=== PATIENT | male | born 1985 | race African-American/Black ===

== ENCOUNTER 2025-05-16 13:26 | Inpatient (IN) | payer OTHER, SELFPAY ==
[2025-05-13 21:31] VITALS: BP 129/84
[2025-05-13 21:35] VITALS: BMI 42.3
[2025-05-13] MEDS: TYLENOL 1000 MG PO (21:45)
--- NOTE | 2025-05-13 22:33 | ED.MUSCINJ ---
HPI-Injury
<Saud Najera MD, Resident - Last Filed: 05/13/25 23:53>
General
Chief Complaint: Musculo-Skeletal Complaint
Source: patient
Time Seen by Provider: 05/13/25 22:07
History of Present Illness-Injury
Is this injury a work related problem?: No
Initial Injury comments:
Patient is a 39-year-old male with no PMH who presents to [facility] with left knee and ankle pain. Patient was walking down steps at home when his right leg slipped off the step, causing his left leg to twist. His left leg was behind him and
on a higher step at the time. Patient felt immediate pop in his knee and fell to the ground. No LOC or head trauma. No blood thinners. Patient felt pain with movement and had substantial difficulty standing and walking on his left leg. Standing
and walking was only possible with his left leg fully locked. Patient was unable to extend his left knee. At the bedside, patient describes a depression above his left knee. Patient also describes mild pain with movement of his left ankle.
Review of Systems
<Saud Najera MD, Resident - Last Filed: 05/13/25 23:53>
Review of Systems
Musculoskeletal: Reports joint pain and joint swelling
Neurological: Denies weakness or numbness
Phy Exam
<Saud Najera MD, Resident - Last Filed: 05/13/25 23:53>
Physical Exam
Physical Exam:
General: NAD. Conversant.
MSK: Depression superior to patella. Edema around left knee extending into thigh and lower leg. No warmth, erythema, or ecchymoses. Edema most pronounced in suprapatellar region. Patient unable to lift his left lower leg off the bed while lying
flat due to both pain and mechanical dysfunction. Mild TTP of left lateral malleolus. Ankle has full ROM, though mildly painful. Sensation intact in LLE.
CV: Left lower extremity warm, no cyanosis, no pallor, and dorsalis pedis pulse 2+.
Neuro: A&O x 3.
Injury Course
<Saud Najera MD, Resident - Last Filed: 05/13/25 23:53>
Orders/Labs/Results
Orders:
Orders
05/13/25 21:40
Knee, Left 4 or More Views [CR Knee - Left 4 Or More View*] Urgent
Comment:
Reason For Exam: fall, left knee pain and swelling
05/13/25 21:44
Acetaminophen [Tylenol] 1,000 mg .ROUTE .STK-MED ONE
05/13/25 21:45
Acetaminophen [Tylenol] 1,000 mg PO NOW STA
05/13/25 23:40
CR Ankle - Left Min 3 Views Urgent
Comment:
Reason For Exam: left ankle pain
05/14/25 00:05
Ortho Boot Left- Treatment ONCE
Short or tall?: Short
<Vahid Meyer MD - Last Filed: 05/14/25 00:46>
Orders/Labs/Results
Orders:
Orders
05/13/25 21:40
Knee, Left 4 or More Views [CR Knee - Left 4 Or More View*] Urgent
Comment:
Reason For Exam: fall, left knee pain and swelling
05/13/25 21:44
Acetaminophen [Tylenol] 1,000 mg .ROUTE .STK-MED ONE
05/13/25 21:45
Acetaminophen [Tylenol] 1,000 mg PO NOW STA
05/13/25 23:40
CR Ankle - Left Min 3 Views Urgent
Comment:
Reason For Exam: left ankle pain
05/14/25 00:05
Ortho Boot Left- Treatment ONCE
Short or tall?: Short
<Saud Najera MD, Resident - Last Filed: 05/13/25 23:53>
MDM/Problems Addressed
Differential Diagnosis Includes:
Quadriceps tendon rupture
Quadriceps tendon tear
Quadricep muscle strain
Ankle fracture
Ankle sprain
MDM/Problems Addressed:
Assessment: Patient is a 39-year-old male with no significant PMH who presents to the [facility] ED with left knee and ankle pain following injury with twisting motion and subsequent 'pop' while walking down steps. Physical exam remarkable for
inability to extend left lower leg at the knee with associated suprapatellar depression and surrounding swelling, as well as TTP of left lateral malleolus. Suspect left quadriceps tendon rupture/tear and left ankle fracture/sprain. Workup ongoing.
Plan:
#Left leg pain
Imaging: L knee x-ray, L ankle x-ray
Acetaminophen for pain control
L knee immobilizer
Plan for outpatient orthopedics follow-up
<Saud Najera MD, Resident - Last Filed: 05/13/25 23:53>
*Pulse Oximetry
SaO2: 98
Patient hypoxic: no
*Critical Care Note
Total Time (30-74mins, 75-104mins- exclusive of procedures): Not Applicable
ED Attending Note
<Saud Najera MD, Resident - Last Filed: 05/13/25 23:53>
-
Portions of this chart may have been created with voice recognition software.� Occasional wrong word or��sound alike� substitutions may have occurred due to the inherent limitations of voice recognition software.
<Vahid Meyer MD - Last Filed: 05/14/25 00:46>
ED Attending Note
Patient seen and examined by attending physician: Yes
I performed a history and physical exam of patient and discussed management with resident, I reviewed resident's note and agree with documented findings and plan of care.: Yes
ED Attending Note:
I have seen and evaluated the patient with a [id number] encounter. I have spoken to the resident and involved in the medical history, the physical exam, medical decision making.
Evaluation and management service: agree unless noted differently below.
Results interpretation: agree unless noted differently below.
Focused HPI: 39-year-old male presents to the ER for evaluation after a slip and fall with left knee injury. Patient was walking up the stairs and slipped and his left leg was flexed at the knee underneath him. He felt a pop in the left knee and
had immediate pain and has not been able to move the knee since due to pain. Also has some mild pain in the left ankle. He denies any other injuries or complaints.
Physical exam: Awake and alert, holding leg straight in bed appears uncomfortable. He has no patellar tenderness or joint line tenderness but does have tenderness in the suprapatellar region with palpable defect in the area of the quadriceps
tendon; he has a mild suprapatellar joint effusion. He has some mild tenderness over the lateral malleolus on the left ankle but no tenderness to the medial malleolus or midfoot; good pulse distally in the left lower extremity. No other signs of
acute trauma.
Medical Decision Makin-year-old male presents with a knee injury after slip and fall on the stairs. X-ray shows no acute fracture, overall his clinical exam is concerning for quadriceps tendon rupture. He also has mild ankle pain suspect
sprain but will check x-ray for completeness. Will place patient in a knee immobilizer. Discussed with orthopedics for follow-up.
X-ray of the ankle shows fibular fracture as well. Placed in Ortho boot in addition to immobilizer. Follow-up with orthopedist outpatient.
I had a long discussion with the patient: He is very concerned because he lives in a townhouse with steps leading to the front door as well as steps throughout the house and does not think he will be able to get around even with crutches. He says
he lives by himself and does not have any family in the area. His mother is flying in tomorrow and will be able to help him but in the meantime he does not feel comfortable going home tonight with his current injuries. I explained to him that
surgery--if needed--would not occur in the hospital and that admission would be mainly for observation but he still wishes to stay in hospital. Discussed case with hospitalist.
Discharge Plan
Departure
Discharge Problem:
Injury of knee, left, Closed fibular fracture
Instructions: Lower leg fracture, Quadriceps and Patellar Tendon Injuries
Prescriptions:
No Action
No Current Medications
0
Referrals:
Khoi Boogie MD [Active, Orthopedics] - Call in 1-3 days for appt
Referral Note: Orthopedist
Activity Restrictions/Additional Instructions:
You were seen in the emergency room for a knee injury. We are concerned that you have injured your quadriceps tendon. You also had a broken bone in your ankle. You were placed in a knee immobilizer and ankle boot which you should keep in place at
all times. You should ambulate with crutches to help you get around but avoid putting weight on your left leg. You should ice your knee for 15 minutes at a time 3-5 times a day for the next few days and keep it elevated when you are sitting. You
can take Tylenol and ibuprofen to help with the pain. You should see the orthopedist this week for further assessment and treatment as we discussed. You should receive a call from the office on Thursday to help schedule your appointment�if you do
not receive a call by Thursday afternoon please call the number above to confirm your appointment.
Thank you for visiting the Emergency Department at [facility].
1. Please schedule a follow up appointment as directed. Call first thing tomorrow morning to make an appointment.
2. If indicated, please take your medications as instructed and indicated on discharge paperwork.
3. If any of your symptoms do not improve, or persist, or become more severe within 6-12 hours, please return to the emergency department for further care.
4. Please return to the emergency department if you develop a headache, neck pain/stiffness, fever greater than 100.4F, chest pain, shortness of breath, persistent nausea, vomiting, slurred speech, difficulty walking, numbness/tingling, weakness,
signs of infection or any other symptoms that are worrisome to you.
Please call [phone] if you have any questions.
Interventions
Interventions:
*Risk Screen - Suicide Last Done: 05/13/25 21:36
*General Assessment Last Done: 05/13/25 21:36
*Neglect/Abuse Screening Last Done: 05/13/25 21:36
*ED- Fall Risk Assessment Last Done: 05/13/25 21:36
*ED COVID-19 Vaccine History Last Done: 05/13/25 21:36
*ED Influenza Vaccine History Last Done: 05/13/25 21:36
ED-Musculoskeletal Assessment Last Done: 05/13/25 21:38
Discharge Date and Time
Print Language: SLOVAK
[2025-05-14] MEDS: MOTRIN 400 MG PO (01:07)
--- NOTE | 2025-05-14 01:50 | HPS.HSE ---
Family Physician
-
Family Physician: * NONE
Chief Complaint
-
Fall
History of Present Illness
This is a 39-year-old with no known signal past medical history who presents to the emergency department following mechanical fall.
Patient reports that he was walking downstairs slipped and fell on his left leg, he had a left knee pain and left ankle pain. He had no head strike. He is not on any thinners. There was no loss of consciousness.
In the emergency department he was afebrile, blood pressure was 129/80 with a pulse of 104 and he was satting 98% on room air. Next
X-ray shows a left distal fibular fracture. Also found to have a quad tendon rupture.
Medical History
Past Medical History
Past Medical History: Reports None
Past Surgical History: Reports Other (Achilles tendon repair)
Social History
Tobacco: Non-smoker
Alcohol: Occasional
Drug: None
Family History
Family History: Not pertinent
Allergies / Home Medications
Allergies reflects when Allergies were last updated in [facility].
Home Medications with original date entered in [facility]
Allergy/Medication List:
Allergies
Allergy/AdvReac Type Severity Reaction Status Date / Time
No Known Allergies Allergy Verified 05/13/25 21:30
Home Medications
No Meds [No Current Medications] 05/13/25
Review of Systems
-
Constitutional: Reports No Symptoms
EENT: Reports No Symptoms
Respiratory: Reports No Symptoms
Cardiac: Reports No Symptoms
Abdomen/GI: Reports No Symptoms
: Reports No Symptoms
Musculoskeletal: Reports No Symptoms
Skin: Reports No Symptoms
Neurological: Reports No Symptoms
Endocrine: Reports No Symptoms
Hematologic/Lymphatic: Reports No Symptoms
Psych: Reports No Symptoms
Physical Exam
Vital Signs
Vital Signs
Temp Pulse Resp BP Pulse Ox
98.2 F 104 20 129/84 98
05/13/25 21:31 05/13/25 21:31 05/13/25 21:31 05/13/25 21:31 05/13/25 22:34
Physical Exam
General: Well Developed, Well Nourished and No Apparent Distress
HEENT: NormoCephalic, Moist mucous membranes and Atraumatic
Respiratory: Clear
Cardiac: S1/S2 and Regular Rhythm; No Murmur or Rub
GI: Soft, Non Tender, Non Distended and Normal Bowel Sounds; No Organomegaly
Rectal: Deferred by Provider
Musculoskeletal: No Clubbing, No Cyanosis and No Edema
Skin: No Rash
Neuro: Nonfocal/grossly intact
Data Reviewed
-
Diagnostic Radiology: Image Personally Visualized and interpreted and Report Reviewed by me
Impression/Plan
-
IMPRESSION:
39-year-old with no known signal past medical history presents to the emergency department following a mechanical fall. He suffered a ankle fracture as well as quadricep tendon rupture. Patient he is unable to walk and lives by himself in a
townhouse. He is unable to help available until tomorrow when his mother arrives. He is unable to manage without getting assistance therefore cannot go home until then.
PLAN:
Ambulatory dysfunction
- Admit to MedSurg observation
-Pain control
-Weightbearing status as per splint
-PT consultation
Ultimately patient is planning to have the tendon repair surgery in [place]
DVT prophylaxis�SCDs
CODE STATUS full code
[2025-05-14] MEDS: MELATONIN 5 MG PO (02:43)
[2025-05-14 04:06] VITALS: BMI 45.5
[2025-05-14 04:07] VITALS: BP 141/96
[2025-05-14] MEDS: TYLENOL 650 MG PO ×4 (04:21→16:39)
--- NOTE | 2025-05-14 04:29 | PTCARENOTE ---
patient received from ED via stretcher. stretcher moved as close to bed as possible and patient able to transfer self over to bed. bed alarm in place due to recent fall. assessment completed. AOx3. oriented patient to room. call muñiz placed within
reach. POC ongoing.
[2025-05-14 08:35] VITALS: BP 148/90
--- NOTE | 2025-05-14 10:42 | CM ---
Addendum entered by Mayda Adam 05/14/25 14:15:
ortho consulted
he will remain inpatient with weightbearing as tolerated on his left lower extremity. He will need to be n.p.o. after midnight on Thursday night
OR Thursday
PLAN: home when stable, CM to follow for discharge planning needs
Original Note:
Patient seen at bedside
IA completed
lives alone in multistory home, 10+steps to enter, flight to bed/bath, states mom flying in today from [place] and he will be going home with her
PLOF: Independent, works
Denies DME
Denies vn, has had outpatient PT in past
PCP: NONE - information given on residency clinic
pharmacy: [facility]
PLAN: Home no needs
mom going to transport
--- NOTE | 2025-05-14 11:12 | W.PN.HOSP.TC ---
Today's Communication/Plan
-
OR likely Thursday
Pain controlled
Labs in morning
Assessment / Plan
Assessment / Plan
General: Well Developed, Well Nourished and No Apparent Distress
HEENT: NormoCephalic, Moist mucous membranes and Atraumatic
Respiratory: Clear
Cardiac: S1/S2 and Regular Rhythm; No Murmur or Rub
GI: Soft, Non Tender, Non Distended and Normal Bowel Sounds; No Organomegaly
Rectal: Deferred by Provider
Musculoskeletal: LLE in immobilizer. Left foot sensation/motor intact.
Skin: No Rash
Neuro: Nonfocal/grossly intact
39-year-old with no known signal past medical history presents to the emergency department following a mechanical fall. He suffered a ankle fracture as well as quadricep tendon rupture. Patient he is unable to walk and lives by himself in a
townhouse. He is unable to help available until tomorrow when his mother arrives. He is unable to manage without getting assistance therefore cannot go home until then.
PLAN:
Mechanical fall
Left ankle fracture
Suspected Quad tendon rupture
-Pain control
-Orthopedic eval-plan for tentative surgery likely Thursday. d/w with Dr. Boogie. Full consult will follow by them.
-Hold PT/OT eval for now
-Bowel regimen
Check labs in the morning.
DVT prophylaxis�SCDs
CODE STATUS full code
Anticipated Discharge: > 48 hours
Subjective/Interval History
-
Date of Service: May 14, 2025
states of mild pain left leg
Objective Data
-
Vital Signs:
Vital Signs
Temp Pulse Resp BP Pulse Ox
98.2 F 98 20 148/90 95
05/14/25 08:35 05/14/25 08:35 05/14/25 08:35 05/14/25 08:35 05/14/25 08:35
I&O
05/13/25 05/14/25 05/15/25
06:59 06:59 06:59
Intake Total 480 / 480
Output Total 800 / 800
Balance -320 / -320
--- NOTE | 2025-05-14 12:27 | CON.ORTHO ---
Consultation
-
Date/Time Consultation Requested: 05/14/2025
Date/Time Consultation Performed: 05/14/2025
Requesting Provider: Dr. Hu
Performing Provider: Amanda Lea PA-C, for Dr. Khoi Boogie
Reason for Consultation: Left quad tendon rupture; left distal fibula fracture
Consultation - Orthopedics
History
HPI: Sebastian is a 39-year-old male who presented to [facility] emergency department after suffering a fall down his stairs. He states he went to step down with his right foot, but it slipped. He believes his left leg got twisted on the
wall near the landing, causing him to fall onto the left knee. He felt a pop in the knee and had immediate discomfort and difficulty ambulating. X-rays were taken in the mid of both his left knee and left ankle. He was noted to have a
nondisplaced Oneil B fracture of his left distal fibula. The x-rays did not show any acute fracture, but a moderate suprapatellar effusion. He was unable to perform an independent straight leg raise and was noted to have a palpable defect about
his quad tendon, concerning for rupture. He was placed in a short cam walker boot as well as a knee immobilizer. Our orthopedic specialty was consulted and to discuss definitive management of both his quad tendon rupture and distal fibula fracture
going forward. He denies any significant medical conditions. He does have a previous history of a right Achilles tendon repair, but denies any perioperative complications or issues with anesthesia. He reports his pain is well-controlled at rest.
Past medical history: None.
Past surgical history: Right Achilles tendon repair.
Social history: Denies tobacco use. Social alcohol use. [place] [facility]. No family in the area. 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
Family history: Noncontributory.
Review of systems: All systems reviewed and negative except for those mentioned in HPI.
Allergies / Home Medications
Allergy/AdvReac Type Severity Reaction Status Date / Time
No Known Allergies Allergy Verified 05/13/25 21:30
�Medication �Instructions �Recorded
No Meds [No Current Medications] 05/13/25
Vital Signs / Lab Results
Temp Pulse Resp BP Pulse Ox
98.2 F 98 20 148/90 95
05/14/25 08:35 05/14/25 08:35 05/14/25 08:35 05/14/25 08:35 05/14/25 08:35
Physical examination:
General: Well developed, obese male in no acute distress at rest. AAO x 4.
HEENT: Atraumatic, normocephalic, neck supple.
Lungs: Nonlabored breathing on room air. No audible wheezing.
Heart: Regular rate and rhythm.
Left knee: Large effusion present. Palpable defect where quad tendon should be. Unable to engage the quad muscle or perform an independent straight leg raise. No erythema or ecchymoses. Range of motion not tested. Knee immobilizer in place.
Calf soft and nontender to palpation.
Left ankle: Short cam walker boot in place. Mild soft tissue swelling of the lateral ankle. Mild tenderness palpation over the distal fibula. Range of motion not tested. Neurovascular intact distally.
Radiographic studies:
3 view x-rays of the left ankle show evidence of a minimally displaced, oblique fracture of the distal fibula extending to the distal tibiofibular syndesmosis. The ankle mortise is preserved. This is a Oneil type B ankle fracture.
4 view, nonweightbearing, x-rays of the left knee show no evidence of acute fracture or dislocation. Joint spaces are well-maintained. Moderate suprapatellar joint effusion present
Assessment / Plan
Assessment: Left quadricep tendon rupture; Oneil B fracture of left distal fibula.
Plan: Unfortunately, Sebastian sustained both a quad tendon rupture and distal fibula fracture of his left leg during his fall. His left distal fibula fracture will not require any surgical intervention going forward. This may be treated with
full-time immobilization in a cam walker boot and weightbearing as tolerated. Unfortunately, he does have a palpable defect and inability to actively extend or perform a straight leg raise of his left leg, highly concerning for complete rupture of
his quadriceps tendon. At this point, recommendation is to proceed with surgical intervention in the form of an open quadricep tendon repair of his left knee. Timing randhawa, we discussed that he would be able to proceed with surgery on Thursday,
05/16/2025, under the direction of Dr. Khoi Boogie. The procedure was explained in detail along with the associated risk, benefits, and recovery process. Surgical consent was signed and placed in his chart. He would be immobilized in a knee
immobilizer with weightbearing as tolerated on his left lower extremity post operatively. He is originally from [place] and does not have a good support system in this area. Ideally, he would like to travel back to [place] to recover with his
mother until he is able to get around more independently. He will likely be able to be discharged home from the PACU following surgery. He may travel 48 hours after surgery back to [place] and initiate physical therapy there. For now, he will
remain inpatient with weightbearing as tolerated on his left lower extremity. He will need to be n.p.o. after midnight on Thursday night. IV antibiotics are on-call to the operating room. All questions were answered and patient was in agreement
with treatment recommendations.
[2025-05-14 16:09] VITALS: BP 142/92
[2025-05-14] MEDS: TYLENOL PO (20:31)
[2025-05-14 23:50] VITALS: BP 149/82
[2025-05-15] MEDS: TYLENOL PO ×2 (00:26→04:03)
--- NOTE | 2025-05-15 05:40 | W.PN.UPDATE ---
Update Note
Progress Note Update
Patient with left quad tendon rupture and non-op left ankle fracture. KI and CAM boot in place. WBAT LLE in boot. Plan for quad tendon repair Thursday ([place]). Surgical and blood consent has been obtained and placed to chart. Operative site has
been marked as the LEFT knee. DNVI LLE. Orders placed. All questions answered. Again, OR planned for Thursday. Patient plans to return to [place] post-op. Will follow
[2025-05-15 07:00] VITALS: BP 141/90
[2025-05-15] MEDS: TYLENOL 650 MG PO ×5 (08:12→23:46)
[2025-05-15 09:14] LABS: Hematocrit 41.8 % (39.0-52.0); Hemoglobin 13.8 g/dL (13.0-18.0); Mean Corp Hgb Conc. 33.0 g/dL (33.0-37.0); Mean Corpuscular Volume 84.3 fL (80.0-94.0); Nucleated Red Blood Cells % 0 % (-); Platelet Count 315 10^3/uL (130-400); Red Cell Dist. Width 14.5 % (11.5-14.5)
[2025-05-15 10:13] LABS: Blood Urea Nitrogen 11 mg/dl (9-20); Calcium 9.5 mg/dl (8.4-10.2); Carbon Dioxide 30 mmol/L (22-30); Chloride 103 mmol/L (98-107); Estimated Creatinine Clearance 115 ml/min; Glucose 111 mg/dl (70-99); Potassium 4.5 mmol/L (3.5-5.1); Sodium 141 mmol/L (135-145); eGFR > 60.00
--- NOTE | 2025-05-15 10:43 | W.PN.HOSP.TC ---
Today's Communication/Plan
-
pain control
check a1c
IS ordered
OR tomm
Assessment / Plan
Assessment / Plan
General: Well Developed, Well Nourished and No Apparent Distress
HEENT: NormoCephalic, Moist mucous membranes and Atraumatic
Respiratory: Clear
Cardiac: S1/S2 and Regular Rhythm; No Murmur or Rub
GI: Soft, Non Tender, Non Distended and Normal Bowel Sounds; No Organomegaly
Rectal: Deferred by Provider
Musculoskeletal: LLE in immobilizer. Left foot sensation/motor intact.
Skin: No Rash
Neuro: Nonfocal/grossly intact
39-year-old with no known signal past medical history presents to the emergency department following a mechanical fall. He suffered a ankle fracture as well as quadricep tendon rupture. Patient he is unable to walk and lives by himself in a
townhouse. He is unable to help available until tomorrow when his mother arrives. He is unable to manage without getting assistance therefore cannot go home until then.
PLAN:
Mechanical fall
Left ankle fracture -plan for nonoperative management
Suspected Quad tendon rupture
-Pain control
-Orthopedic bandar-plan for Quad tendon repair thursday.
-Hold PT/OT eval for now
-Bowel regimen
Impaired glucose tolerance
-Check a1c
Morbid obesity likely due to excess calories
DVT prophylaxis�SCDs
CODE STATUS full code
post op plan to return to [place] for rehab/recovery
Anticipated Discharge: > 48 hours
Subjective/Interval History
-
Date of Service: May 15, 2025
states L knee pain
Objective Data
-
Labs:
Laboratory Results
05/15/25
08:16
WBC 6.3
Hgb 13.8
Hct 41.8
Plt Count 315
Sodium 141
Potassium 4.5
Chloride 103
Carbon Dioxide 30
BUN 11
Creatinine 1.1
Glucose 111 H
Calcium 9.5
Vital Signs:
Vital Signs
Temp Pulse Resp BP Pulse Ox
98.5 F 86 18 141/90 99
05/15/25 07:00 05/15/25 07:00 05/15/25 07:00 05/15/25 07:00 05/15/25 09:50
I&O
05/14/25 05/15/25 05/16/25
06:59 06:59 06:59
Intake Total 480 / 480 1950 / 1950
Output Total 800 / 800 1650 / 1650
Balance -320 / -320 300 / 300
--- NOTE | 2025-05-15 12:17 | CM ---
Addendum entered by Sneha Perry 05/15/25 15:44:
Patient given OBS form and stated he would sign form when he was finished/nursing aware and reviewed form placed on chart.
Original Note:
Patient seen at bedside on . Patient plan is for surgery again tomorrow and then home with family. CM will continue to follow for discharge planning needs.
Plan; home with no needs vs home with Vn
[2025-05-15 15:00] VITALS: BP 149/103
[2025-05-15 19:20] VITALS: BP 140/80
[2025-05-15 23:19] VITALS: BP 150/92
[2025-05-16] VITALS (14 sets, daily range): BP systolic 111–176; BP diastolic 74–120
[2025-05-16] MEDS: TYLENOL 650 MG PO ×5 (03:40→23:31)
[2025-05-16 05:55] LABS: Hematocrit 40.4 % (39.0-52.0); Hemoglobin 13.3 g/dL (13.0-18.0); Mean Corp Hgb Conc. 32.9 g/dL (33.0-37.0); Mean Corpuscular Volume 84.7 fL (80.0-94.0); Nucleated Red Blood Cells % 0 % (-); Platelet Count 316 10^3/uL (130-400); Red Cell Dist. Width 14.2 % (11.5-14.5)
[2025-05-16 06:19] LABS: Blood Urea Nitrogen 13 mg/dl (9-20); Calcium 9.4 mg/dl (8.4-10.2); Carbon Dioxide 30 mmol/L (22-30); Chloride 103 mmol/L (98-107); Estimated Creatinine Clearance 115 ml/min; Glucose 110 mg/dl (70-99); Potassium 4.3 mmol/L (3.5-5.1); Sodium 137 mmol/L (135-145); eGFR > 60.00
--- NOTE | 2025-05-16 07:23 | W.PN.UPDATE ---
Update Note
Progress Note Update
39M left quad tendon rupture and nondisplaced distal fibula ankle fracture (Oneil B).
KI and CAM boot in place.
WBAT LLE in boot.
OR today for quad tendon repair. Consent on file, ABX OCTOR
Will update orders postop
[2025-05-16 07:57] LABS: Glycohemoglobin (HgbA1c) 5.7 % (4.0-5.9)
--- NOTE | 2025-05-16 11:54 | W.PN.HOSP.TC ---
Today's Communication/Plan
-
OR today
post OP PT/OT
Pain control
dvt ppx per ortho
Assessment / Plan
Assessment / Plan
General: Well Developed, Well Nourished and No Apparent Distress
HEENT: NormoCephalic, Moist mucous membranes and Atraumatic
Respiratory: Clear
Cardiac: S1/S2 and Regular Rhythm; No Murmur or Rub
GI: Soft, Non Tender, Non Distended and Normal Bowel Sounds; No Organomegaly
Rectal: Deferred by Provider
Musculoskeletal: LLE in immobilizer. Left foot sensation/motor intact.
Skin: No Rash
Neuro: Nonfocal/grossly intact
39-year-old with no known signal past medical history presents to the emergency department following a mechanical fall. He suffered a ankle fracture as well as quadricep tendon rupture. Patient he is unable to walk and lives by himself in a
townhouse. He is unable to help available until tomorrow when his mother arrives. He is unable to manage without getting assistance therefore cannot go home until then.
PLAN:
Mechanical fall
Left ankle fracture -plan for nonoperative management
Suspected Quad tendon rupture
-Pain control
-Orthopedic bandar-plan for Quad tendon repair today
-Hold PT/OT eval for now
-Bowel regimen
Impaired glucose tolerance
-Check a1c -5.7
Morbid obesity likely due to excess calories
DVT prophylaxis�SCDs
CODE STATUS full code
post op plan to return to [place] for rehab/recovery
Anticipated Discharge: Within 24 hours
Subjective/Interval History
-
Date of Service: May 16, 2025
states of left knee pain
awaiting OR
Objective Data
-
Labs:
Laboratory Results
05/16/25
05:22
WBC 6.2
Hgb 13.3
Hct 40.4
Plt Count 316
Sodium 137
Potassium 4.3
Chloride 103
Carbon Dioxide 30
BUN 13
Creatinine 1.1
Glucose 110 H
Calcium 9.4
Vital Signs:
Vital Signs
Temp Pulse Resp BP Pulse Ox
98.6 F 86 18 135/91 94
05/16/25 07:00 05/16/25 07:00 05/16/25 07:00 05/16/25 07:00 05/16/25 10:05
I&O
05/15/25 05/16/25 05/17/25
06:59 06:59 06:59
Intake Total 1950 / 1950 1040 / 1040
Output Total 1650 / 1650 950 / 950
Balance 300 / 300 90 / 90
--- NOTE | 2025-05-16 13:46 | CM ---
Addendum entered by Sneha Perry 05/16/25 14:51:
Patient mother plans to take patient with her to [facility] possibly this Thursday via plane. Several questions from mother; for discharge planning. what is the schedule for follow up with surgeons and will patient need VN for follow up
care. Patient family has connections with a Dr. Prosper Lopez in [place] [phone] and [employer] would have coverage to see him if patient needs VN in that area. CM sent tt to physicians requesting update regarding surgical follow up.
Plan; patient and mother leaving for [facility]; will need surgical follow up and prescriptions for medication.
Original Note:
Patient for surgery today. Patient for possible VN following surgery, pending location and options for a PCP Kayla will review options to see if they can follow with patient. [facility] will continue to follow for discharge planning needs.
Plan; home with VN; pending medical treatment plan
[2025-05-16] MEDS: DILAUDID 0.5 MG IV ×3 (15:35→15:53)
[2025-05-16] MEDS: TYLENOL PO (17:45)
--- NOTE | 2025-05-16 17:45 | PTCARENOTE ---
Pt received from the PACU via stretcher. Transport was w/o incident. Pt is AAOx3, HRR/ tachy low 100's. Resp. easy. BP 150/105. Pt's left leg with knee immobilizer and cam boot. Left DP pulse bounding at present. Pt able to wiggle toes on left and
report full sensation. Pt instructed on plan of care. Pt verbalized understanding of instructions. Call muñiz is within reach.
[2025-05-16] MEDS: ASPIRIN 325 MG PO (19:47)
[2025-05-16] MEDS: ANCEF 5 IV (21:42)
[2025-05-17] VITALS (7 sets, daily range): BP systolic 124–154; BP diastolic 78–92; PULSE 99–101; O2SAT 98–99
[2025-05-17] MEDS: TYLENOL 650 MG PO ×6 (03:48→23:24)
[2025-05-17] MEDS: ANCEF 5 IV (05:17)
[2025-05-17] MEDS: ASPIRIN 325 MG PO ×2 (08:19→19:59)
[2025-05-17] MEDS: ROXICODONE 5 MG PO (08:19)
[2025-05-17 08:37] LABS: Hematocrit 42.3 % (39.0-52.0); Hemoglobin 13.5 g/dL (13.0-18.0); Mean Corp Hgb Conc. 31.9 g/dL (33.0-37.0); Mean Corpuscular Volume 86.5 fL (80.0-94.0); Nucleated Red Blood Cells % 0 % (-); Platelet Count 344 10^3/uL (130-400); Red Cell Dist. Width 14.5 % (11.5-14.5)
[2025-05-17 08:58] LABS: Blood Urea Nitrogen 15 mg/dl (9-20); Calcium 9.6 mg/dl (8.4-10.2); Carbon Dioxide 29 mmol/L (22-30); Chloride 104 mmol/L (98-107); Estimated Creatinine Clearance > 125 ml/min; Glucose 113 mg/dl (70-99); Potassium 4.7 mmol/L (3.5-5.1); Sodium 138 mmol/L (135-145); eGFR > 60.00
--- NOTE | 2025-05-17 09:12 | W.PN.UPDATE ---
Update Note
Progress Note Update
Mr. Storey is a 39 year old male POD 1 following his left quadriceps tendon repair performed by Dr. Boogie. He is resting comfortably in bed, and denies any significant pain at present. He has no questions or concerns at this time.
Directed exam of the left lower extremity reveals surgical dressing clean, dry and intact. ROM deferred. Mild tenderness over the distal fibula. Calf soft and nontender. NVID.
39 yo M POD1 left quadriceps tendon repair under the direction of Dr. Boogie; left distal fibula fracture
--WBAT with knee immobilizer and CAM boot. Knee is to remain in extension at all times, no flexion of the knee. We appreciate the assistance of PT/OT.
--Recommend ASA 325 mg BID for DVT ppx.
--Pain control prn. Ice and elevation for pain and edema control.
--Maintain surgical dressing. Staple removal at 2 weeks post-op.
--Case management consult for dc planning.
--Orthopedics will continue to follow along.
--- NOTE | 2025-05-17 11:24 | W.PN.HOSP.TC ---
Today's Communication/Plan
-
Monitor vitals
See plan
PT/OT
Pain control
Aspirin
Discharge planning
Assessment / Plan
Assessment / Plan
General: Well Developed, Well Nourished and No Apparent Distress
HEENT: NormoCephalic, Moist mucous membranes and Atraumatic
Respiratory: Clear
Cardiac: S1/S2 and Regular Rhythm; No Murmur or Rub
GI: Soft, Non Tender, Non Distended and Normal Bowel Sounds
Musculoskeletal: LLE in immobilizer. Left foot boot
Neuro: Nonfocal/grossly intact
39-year-old with no known signal past medical history presents to the emergency department following a mechanical fall. He suffered a ankle fracture as well as quadricep tendon rupture. Patient he is unable to walk and lives by himself in a
townhouse. He is unable to help available until tomorrow when his mother arrives. He is unable to manage without getting assistance therefore cannot go home until then.
PLAN:
Mechanical fall
Left ankle fracture -plan for nonoperative management
Suspected Quad tendon rupture
-Pain control
-Orthopedic bandar-s/p Quad tendon repair 05/16; WBAT with knee immobilizer and CAM boot. Knee is to remain in extension at all times, no flexion of the knee.
PT/OT per ortho
Aspirin twice daily for DVT prophylaxis per Ortho
Maintain surgical dressing. Staple removal at 2 weeks post-op.
-Bowel regimen
Impaired glucose tolerance
-Check a1c -5.7
Morbid obesity likely due to excess calories
DVT prophylaxis�ASA
CODE STATUS full code
post op plan to return to [place] for rehab/recovery
Anticipated Discharge: Within 24 hours
Subjective/Interval History
-
Date of Service: May 17, 2025
Denies nausea
Objective Data
-
Labs:
Laboratory Results
05/17/25
08:01
WBC 11.9 H
Hgb 13.5
Hct 42.3
Plt Count 344
Sodium 138
Potassium 4.7
Chloride 104
Carbon Dioxide 29
BUN 15
Creatinine 1.0
Glucose 113 H
Calcium 9.6
Vital Signs:
Vital Signs
Temp Pulse Resp BP Pulse Ox
98.0 F 90 16 135/80 97
05/17/25 07:30 05/17/25 07:30 05/17/25 07:30 05/17/25 07:30 05/17/25 07:30
I&O
05/16/25 05/17/25 05/18/25
06:59 06:59 06:59
Intake Total 1040 / 1040 1350 / 1350 480 / 480
Output Total 950 / 950 1200 / 1200 300 / 300
Balance 90 / 90 150 / 150 180 / 180
[2025-05-17] MEDS: ROXICODONE 10 MG PO ×3 (12:24→20:40)
[2025-05-17] MEDS: ULTRAM 50 MG PO ×2 (15:29→23:26)
--- NOTE | 2025-05-17 16:40 | CM ---
Addendum entered by Perfecto Aaron 05/17/25 16:52:
No need for HH RN.
Original Note:
Met with patient to discuss plans for discharge. Patient will be staying in hotel with mother after discharge. On Thursday they will fly to [place].
Dr.Todd Lopez (Orthopedic Surgeon) [phone] confirmed he will follow patient's aftercare in [place]. Peyton is his office contact. Dr. Lopez is requesting the following at discharge:
* Insurance information-Face Sheet
* Disc of all imaging done
* OR reports
* H & P
* Type of follow-up needed
* Any protocols to be followed
* Med list
Patient will also need a walker at discharge from therapy. He will also need prescriptions.
[2025-05-18] MEDS: ROXICODONE 5 MG PO ×2 (00:48→05:57)
[2025-05-18] MEDS: TYLENOL 650 MG PO ×5 (03:14→19:51)
[2025-05-18 07:00] VITALS: BP 155/92
--- NOTE | 2025-05-18 07:23 | W.PN.ORTHO ---
Today's Communication / Plan
-
Left knee immobilizer in place at all times, if knee immobilizer is removed for dressing changed keep knee in extension at all times
Left lower extremity fracture boot in place at all times
Ice with elevation to control swelling and pain
Aspirin 325 mg twice daily for DVT prophylactics
Orthopedically patient appears stable so when medically stable discharge to home
On discharge patient plans to travel to [place] so family may help him and an orthopedic surgeon has agreed to accept his care there
Left knee incision is glued so follow-up orthopedics office 2 weeks postop for wound check and x-rays left ankle 2 weeks post injury to make sure no change in alignment
Orthopedics to sign off for now
Assessment
.
Distal Motor Intact: Yes
Dressing:
Clean, dry and intact.
Plan
.
Surgery / Date: L quad repair/L fibula fx 05/16 Ritting
DVT Prophylaxis: Aspirin
Activity:
Out of bed.
PT/OT
Discharge Plan: Home
Subjective
.
.:
Patient resting comfortably. Sounds like plan is for him to be discharged and he will travel back to [place] where family can help him and an orthopedic surgeon will except him as a patient.
Vital Signs and Labs
.
Vital Signs and Labs:
Temp Pulse Resp BP Pulse Ox
98.2 F 82 16 124/78 96
05/17/25 23:15 05/17/25 23:15 05/17/25 23:15 05/17/25 23:15 05/17/25 23:15
Physical Exam
-
Left knee immobilizer in place. Left lower extremity fracture boot in place. Dressing is clean, dry and intact. No calf discomfort. Tenderness over the distal fibula. Distal neurovascular was intact.
[2025-05-18 08:28] LABS: Hematocrit 41.1 % (39.0-52.0); Hemoglobin 13.1 g/dL (13.0-18.0); Mean Corp Hgb Conc. 31.9 g/dL (33.0-37.0); Mean Corpuscular Volume 87.1 fL (80.0-94.0); Nucleated Red Blood Cells % 0 % (-); Platelet Count 323 10^3/uL (130-400); Red Cell Dist. Width 14.6 % (11.5-14.5)
[2025-05-18 08:31] LABS: Blood Urea Nitrogen 15 mg/dl (9-20); Calcium 9.3 mg/dl (8.4-10.2); Carbon Dioxide 29 mmol/L (22-30); Chloride 102 mmol/L (98-107); Estimated Creatinine Clearance > 125 ml/min; Glucose 114 mg/dl (70-99); Potassium 4.3 mmol/L (3.5-5.1); Sodium 137 mmol/L (135-145); eGFR > 60.00
[2025-05-18] MEDS: ASPIRIN 325 MG PO ×2 (09:53→19:51)
[2025-05-18] MEDS: ROXICODONE 10 MG PO ×3 (09:54→19:51)
--- NOTE | 2025-05-18 10:40 | CM ---
Addendum entered by Oxana Marlow 05/18/25 15:50:
PT provided Rolling Walker
Addendum entered by Oxana Marlow 05/18/25 15:41:
PT re-evaluated patient today; Rehab not recommended
Met with patient and his mother at bedside to discuss discharge plan. Patient will go to a Hotel in [place] when discharged from .
Mother is going to drive patient to her one floor home in [place] on Thursday; she is in the process of renting a mini van. Hopefully [employer] can have one available tomorrow.
Mother will get the WC from a [employer] in [place]. Per PT, the WC needs desk length armrests; calf pads/elevating leg rests. Mother provided this information.
Ortho MD's office called while residential case manager was in the room; patient's insurance information was provided
Plan: Discharge tomorrow to local lodging; mother will provide transport
Addendum entered by Oxana Marlow 05/18/25 13:36:
Discharge pending PT evaluation
Original Note:
Met with patient at bedside
Script requested for PT to provide Rolling Walker at Discharge; PT notified
Packet of discharge documents left with mechanical unit repairer on ; CD placed in the envelope
Mother will transport to Hotel where they will stay in the interim before returning to mother's home in [place]; Will need to obtain script for outpatient therapy from the Ortho Physician he will see in [place]
Plan: Discharge today
--- NOTE | 2025-05-18 11:01 | W.PN.HOSP.TC ---
Today's Communication/Plan
-
monitor vitals
see plan
pain meds
bowel regimen
dc today
time of discharge 38 minutes
Assessment / Plan
Assessment / Plan
General: Well Developed, Well Nourished and No Apparent Distress
HEENT: NormoCephalic, Moist mucous membranes and Atraumatic
Respiratory: Clear
Cardiac: S1/S2 and Regular Rhythm; No Murmur or Rub
GI: Soft, Non Tender, Non Distended and Normal Bowel Sounds
Musculoskeletal: LLE in immobilizer. Left foot boot
Neuro: Nonfocal/grossly intact
39-year-old with no known signal past medical history presents to the emergency department following a mechanical fall. He suffered a ankle fracture as well as quadricep tendon rupture. Patient he is unable to walk and lives by himself in a
townhouse. He is unable to help available until tomorrow when his mother arrives. He is unable to manage without getting assistance therefore cannot go home until then.
PLAN:
Mechanical fall
Left ankle fracture -plan for nonoperative management
Suspected Quad tendon rupture
-Pain control
-Orthopedic bandar-s/p Quad tendon repair 05/16; WBAT with knee immobilizer and CAM boot. Knee is to remain in extension at all times, no flexion of the knee.
PT/OT per ortho
Aspirin twice daily for DVT prophylaxis per Ortho
Maintain surgical dressing. Staple removal at 2 weeks post-op.
-Bowel regimen; refusing miralax
PT/OT rec home health
Impaired glucose tolerance
-Check a1c -5.7
Morbid obesity likely due to excess calories
DVT prophylaxis�ASA
CODE STATUS full code
post op plan to return to [place] for rehab/recovery
Anticipated Discharge: Today
Subjective/Interval History
-
Date of Service: May 18, 2025
has some intermittent pain
Objective Data
-
Labs:
Laboratory Results
05/18/25
07:54
WBC 8.0
Hgb 13.1
Hct 41.1
Plt Count 323
Sodium 137
Potassium 4.3
Chloride 102
Carbon Dioxide 29
BUN 15
Creatinine 1.0
Glucose 114 H
Calcium 9.3
Vital Signs:
Vital Signs
Temp Pulse Resp BP Pulse Ox
97.8 F 85 12 155/92 100
05/18/25 07:00 05/18/25 07:00 05/18/25 07:00 05/18/25 07:00 05/18/25 07:00
I&O
05/17/25 05/18/25 05/19/25
06:59 06:59 06:59
Intake Total 1350 / 1350 2880 / 2880 480 / 480
Output Total 1200 / 1200 1350 / 1350
Balance 150 / 150 1530 / 1530 480 / 480
--- NOTE | 2025-05-18 14:10 | W.DCSUMMARY ---
Discharge Summary
Discharge Data
Date of Admission: 05/16/25
Date of Discharge: 05/19/25
-
Pending Results: No
Hospital Course
39-year-old male came to the hospital after a fall with left ankle fracture. Patient also had quadricep tendon rupture. Patient seen by orthopedics and was taken for surgery for quadricep tendon repair. Postop patient was seen by physical therapy
who recommended home health. Patient was also started on aspirin for DVT prophylaxis. Once patient symptoms were improving, patient was then discharged home with instructions to follow-up with all his physicians outpatient.
Discharge Plan
-
Patient Disposition: Home (Routine Discharge)
Discharge Diagnosis/Procedures: Mechanical fall
Left ankle fracture -plan for nonoperative management
Quad tendon rupture s/p repair
Diet: As tolerated
Activity: With assistance and As tolerated
Additional Activity: WBAT with knee immobilizer and CAM boot. Knee is to remain in extension at all times, no flexion of the knee
Driving Restrictions: Not until seen by your Dr
Bathing Restrictions: None
Activity Restrictions/Additional Instructions:
WBAT with knee immobilizer and CAM boot. Knee is to remain in extension at all times, no flexion of the knee
Left knee immobilizer in place at all times, if knee immobilizer is removed for dressing changed keep knee in extension at all times
Left lower extremity fracture boot in place at all times
Follow-up with orthopedics in [place] as soon as possible. Ideally you need to be on DVT prophylaxis which we have given with aspirin for a month after surgery however please consult with orthopedics to see how long you need to continue past 1
month.
Left knee incision is glued so follow-up orthopedics office 2 weeks postop for wound check and x-rays left ankle 2 weeks post injury to make sure no change in alignment
Referrals:
NONE,* [Family Provider, Internal Medicine] - in less than 1 week
Khoi Boogie MD [Active, Orthopedics] - in less than 1 week
Prescriptions:
New
aspirin 325 mg Tablet
325 mg PO BID Qty: 60 0RF
polyethylene glycol 3350 17 gram Powder In Packet
17 g PO DAILYPRN PRN (Reason: constipation) Qty: 0 0RF
oxycodone 5 mg Tablet
5 mg PO Q4HPRN PRN (Reason: Moderate pain) Qty: 30 0RF
sennosides-docusate sodium [Senna Plus] 8.6-50 mg Tablet
1 tab PO BID Qty: 0 0RF
oxycodone 10 mg Tablet
10 mg PO Q4HPRN PRN (Reason: severe pain) Qty: 0 0RF
acetaminophen 325 mg Tablet
650 mg PO Q4HWA Qty: 0 0RF
Discharge Orders:
Discharge Patient (As Directed); Ordered 05/18/25
Ordered By: Boyd Harris
Discharge Date and Time
Discharge Date/Time: 05/19/25 12:55
Print Language: YAKUT
[2025-05-18 15:00] VITALS: BP 157/106
[2025-05-18 23:00] VITALS: BP 134/77
[2025-05-19] MEDS: ROXICODONE 10 MG PO ×2 (00:39→04:42)
[2025-05-19] MEDS: TYLENOL 650 MG PO ×3 (00:39→09:56)
[2025-05-19 07:40] VITALS: BP 129/82
[2025-05-19 08:15] LABS: Hematocrit 40.6 % (39.0-52.0); Hemoglobin 13.0 g/dL (13.0-18.0); Mean Corp Hgb Conc. 32.0 g/dL (33.0-37.0); Mean Corpuscular Volume 86.2 fL (80.0-94.0); Nucleated Red Blood Cells % 0 % (-); Platelet Count 329 10^3/uL (130-400); Red Cell Dist. Width 14.2 % (11.5-14.5)
[2025-05-19] MEDS: ASPIRIN 325 MG PO (08:24)
[2025-05-19 08:38] LABS: Blood Urea Nitrogen 15 mg/dl (9-20); Calcium 9.3 mg/dl (8.4-10.2); Carbon Dioxide 30 mmol/L (22-30); Chloride 100 mmol/L (98-107); Estimated Creatinine Clearance > 125 ml/min; Glucose 98 mg/dl (70-99); Potassium 4.3 mmol/L (3.5-5.1); Sodium 134 mmol/L (135-145); eGFR > 60.00
[2025-05-19] MEDS: ROXICODONE 5 MG PO (09:56)
--- NOTE | 2025-05-19 10:08 | CM ---
Addendum entered by Mayda Adam 05/19/25 10:27:
noon transport set up
Original Note:
spoke with patient mother Sol [phone]
she was agreeable with ambulance, she states that she had not rec the mini van from [place]
she states hotel is [facility], [address], [place]
she discussed medications with hospitalist
CM also stated the packet/disc is with special investigation unit investigator. She states she will be coming to hospital
States will be driving to [place]
PLAN: [facility] Hot with mom then will be driving back to [place]
transport forms on chart, special investigation unit investigator to set up ambulance
--- NOTE | 2025-05-19 10:11 | W.PN.HOSP.TC ---
Addendum entered and electronically signed by Boyd Harris MD 05/19/25 13:31:
Mild hyponatremia
Monitor
Original Note:
Today's Communication/Plan
-
monitor vitals
see plan
medically stable for dc
couldnt have safe ride yesterday per CM
discussed with patient
time of discharge 38 minutes
Assessment / Plan
Assessment / Plan
General: Well Developed, Well Nourished and No Apparent Distress
HEENT: NormoCephalic, Moist mucous membranes and Atraumatic
Respiratory: Clear
Cardiac: S1/S2 and Regular Rhythm; No Murmur or Rub
GI: Soft, Non Tender, Non Distended and Normal Bowel Sounds
Musculoskeletal: LLE in immobilizer. Left foot boot
Neuro: Nonfocal/grossly intact
39-year-old with no known signal past medical history presents to the emergency department following a mechanical fall. He suffered a ankle fracture as well as quadricep tendon rupture. Patient he is unable to walk and lives by himself in a
townhouse. He is unable to help available until tomorrow when his mother arrives. He is unable to manage without getting assistance therefore cannot go home until then.
PLAN:
Mechanical fall
Left ankle fracture -plan for nonoperative management
Suspected Quad tendon rupture
-Pain control
-Orthopedic bandar-s/p Quad tendon repair 05/16; WBAT with knee immobilizer and CAM boot. Knee is to remain in extension at all times, no flexion of the knee.
PT/OT per ortho
Aspirin twice daily for DVT prophylaxis per Ortho
Maintain surgical dressing. Staple removal at 2 weeks post-op.
-Bowel regimen; refusing miralax
PT/OT rec home health
Impaired glucose tolerance
-Check a1c -5.7
Morbid obesity likely due to excess calories
DVT prophylaxis�ASA
CODE STATUS full code
post op plan to return to [place] for rehab/recovery
Anticipated Discharge: Today
Subjective/Interval History
-
Date of Service: May 19, 2025
has some expected pain
Objective Data
-
Labs:
Laboratory Results
05/19/25
07:29
WBC 6.9
Hgb 13.0
Hct 40.6
Plt Count 329
Sodium 134 L
Potassium 4.3
Chloride 100
Carbon Dioxide 30
BUN 15
Creatinine 1.0
Glucose 98
Calcium 9.3
Vital Signs:
Vital Signs
Temp Pulse Resp BP Pulse Ox
98.0 F 72 16 129/82 100
05/19/25 07:40 05/19/25 07:40 05/19/25 07:40 05/19/25 07:40 05/19/25 10:03
I&O
05/18/25 05/19/25 05/20/25
06:59 06:59 06:59
Intake Total 2880 / 2880 2160 / 2160
Output Total 1350 / 1350 1150 / 1150 400 / 400
Balance 1530 / 1530 1010 / 1010 -400 / -400
[2025-05-19 11:31] VITALS: BP 148/94
== END 2025-05-19 12:55 | disposition home or self-care (01) | DRG 501 ==
LOC: 2 SOUTH 13:26
PROVIDERS: Hospitalist; ADMITTING PHYSICIAN Internal Medicine; ATTENDING PHYSICIAN Internal Medicine; CONSULT PHYSICIAN Orthopaedic Surgery Hand Surgery; EMERGENCY PHYSICIAN Emergency Medicine
PROC: 0LQM0ZZ Repair Left Upper Leg Tendon, Open Approach (ICD-10-PCS; 2025-05-16)
DX: S76.112A Strain of left quadriceps muscle, fascia and tendon, initial encounter (principal); E87.1 Hypo-osmolality and hyponatremia; Z68.42 Body mass index [BMI] 45.0-49.9, adult; W10.9XXA Fall (on) (from) unspecified stairs and steps, initial encounter; Y93.01 Activity, walking, marching and hiking; S82.62XA Displaced fracture of lateral malleolus of left fibula, initial encounter for closed fracture; E66.01 Morbid (severe) obesity due to excess calories
CPT/HCPCS: 29515; 73564; 73610; 80048; 83036; 85025; 97116; 97163; 97167; 97530; 97535; 99285; C1713